=== PATIENT | male | born 1945 | race Caucasian/White ===

== ENCOUNTER 2023-06-30 13:07 | Outpatient (RCR) | payer OTHER, SELFPAY | END 2023-06-30 23:59 | disposition home or self-care (01) | LOC: RPT 13:07 | PROVIDERS: ATTENDING PHYSICIAN Family Medicine | DX: M79.601 Pain in right arm (principal); R26.2 Difficulty in walking, not elsewhere classified; Z73.6 Limitation of activities due to disability; R26.89 Other abnormalities of gait and mobility; M62.81 Muscle weakness (generalized); R29.6 Repeated falls | CPT/HCPCS: 97162; 97530 ==

== ENCOUNTER 2023-08-02 11:01 | Outpatient (RCR) | payer OTHER, SELFPAY | END 2023-08-02 23:59 | disposition home or self-care (01) | LOC: RPT 11:01 | PROVIDERS: ATTENDING PHYSICIAN Family Medicine | DX: M79.601 Pain in right arm (principal); R26.2 Difficulty in walking, not elsewhere classified; R26.89 Other abnormalities of gait and mobility; Z73.6 Limitation of activities due to disability | CPT/HCPCS: 97010; 97110; 97112; 97140; 97164 ==

== ENCOUNTER 2023-08-09 11:08 | Outpatient (RCR) | payer OTHER, SELFPAY | END 2023-08-09 23:59 | disposition home or self-care (01) | LOC: RPT 11:08 | PROVIDERS: ATTENDING PHYSICIAN Family Medicine | DX: M79.601 Pain in right arm (principal); R26.2 Difficulty in walking, not elsewhere classified; Z73.6 Limitation of activities due to disability; R26.89 Other abnormalities of gait and mobility; M62.81 Muscle weakness (generalized); M54.50 Low back pain, unspecified; M54.2 Cervicalgia; R29.6 Repeated falls | CPT/HCPCS: 97010; 97110; 97112 ==

== ENCOUNTER 2023-08-23 22:07 | Emergency (ER) | payer OTHER, SELFPAY ==
[2023-08-23 22:08] VITALS: BP 174/79; BMI 29.6
[2023-08-23 22:26] VITALS: BP 192/69
[2023-08-23 23:00] VITALS: BP 175/154
[2023-08-23 23:02] VITALS: BP 189/72
--- NOTE | 2023-08-23 23:53 | ED.GENMED ---
History of Present Illness
General
Chief Complaint: Fall
Source: patient, spouse and previous hospital records (PVI A-fib ablation March 2023)
Exam Limitations: none
Time Seen by Provider: 08/23/23 22:54
Nursing documentation reviewed up to this point in time: agreed with
Travel History
Have you had any contact with someone who has COVID-19?: No
Do you have any symptoms of coronavirus? Fever > 100 degrees, chills, cough, shortness of breath, sore throat, loss of taste or smell, muscle aches, or headache?: No
History of Present Illness
History of Present Illness:
This is a 77-year-old gentleman who has history of paroxysmal atrial fibrillation status post PVI ablation March 2023, maintained on Eliquis as well as low-dose aspirin. He suffered a mechanical fall tonight, losing his balance and falling
backwards while standing on the sidewalk admits to striking the back of his head on the sidewalk. He did not lose consciousness, was able to get himself up and off of the sidewalk and has presented via private automobile with his for further
evaluation as recommended by his straightedge man due to concern for head injury and anticoagulation.
He denies headache, denies neck or back pain, denies nausea nor vomiting, denies dizziness nor lightheadedness. He denies weakness nor numbness, no chest pain or coughing or shortness of breath. No difficulty with ambulation.
He denies frequent falls but does admit that he sometimes loses his balance and is contemplating using a cane for added support.
Prior to tonight his last fall was January 2023�evaluated in the ED at that time after suffering a mechanical fall while taking out the garbage, sustaining a laceration to his left hand.
Vital signs reviewed. Initial systolic blood pressure moderately elevated 176. Patient states he oftentimes has sporadic elevations of blood pressure generally in the evening hours. His usual baseline systolic blood pressure runs 120s to 140s.
Chronically maintained on Eliquis 5 mg twice daily as well as low-dose aspirin. Recent discussion with his straightedge man regarding frequent bruising along with history of chronic kidney disease with creatinine running 2.2-2.5, he was recommended to
lower his dose of Eliquis to 2.5 mg twice daily which he plans to initiate tomorrow.
Past History
Past History
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
ED Past Surgical History: Cardiac (stent), Orthopedic (Rotator cuff repair) and Other (Hernia repair, Mohs procedure)
Social History
Tobacco: Non-smoker
Alcohol: None
Personal:
Living: with family
Employment: Retired
Family History
Family History: Other (Noncontributory)
Phy Exam
Physical Exam
Physical Exam:
TRAUMA EXAM:
VITAL SIGNS: Vital signs reviewed, cooperative. 77-year-old gentleman appears his stated age, bright and alert, easily communicative and in no acute distress. is accompanying.
DISTRESS: No active disease
EYES: Pupils reactive, no orbital trauma
NOSE: No deformity or epistaxis
FACE AND SCALP: There is a 1 cm soft tissue contusion right posterior parietal scalp that is minimally tender to palpation. Just anterior to this is a 1.5 cm very superficial abrasion with mild scale along the posterior edge. This abrasion appears
somewhat chronic in nature and believes related to dermatology freezing procedure performed more recently. External canals no blood
NECK: Supple nontender, full range of motion without difficulty nor pain.
BACK: Back nontender, pelvis stable to compression. There is a superficial abrasion right inferior scapular region with mild local soft tissue swelling. No focal tenderness. Full shoulder range of motion without difficulty nor pain. There is no
palpable thoracic vertebral nor rib tenderness nor palpable crepitus.
RESPIRATORY: No distress, breath sounds normal, no tender chest wall
CARDIAC: No murmur, pulses equal and strong. Regular rate and rhythm without ectopy.
ABDOMEN: Soft nontender bowel sounds normal
SKIN: Warm and dry, normal color. Good turgor.
EXTREMITIES: There is a superficial abrasion with minimal ecchymosis right posterior elbow. No soft tissue swelling, no palpable tenderness. Full elbow range of motion without difficulty nor pain. +2 pitting edema bilateral lower extremities.
Peripheral pulses are full and equal. Full range of motion of extremities without difficulty nor pain.
NEUROLOGICAL: Alert, oriented, no motor deficits. Gait is steady.
PSYCH: Mood affect normal
Course
Orders/Labs/Results
Orders:
Orders
08/23/23 23:03
CT Head W/o Iv Contrast Urgent
Comment:
Reason For Exam: post head trauma from fall, on eliquis
Vital Signs
Initial and Last Documented VS:
Initial Vital Signs
Temp Pulse Resp BP Pulse Ox
98.3 F 77 16 174/79 99
08/23/23 22:08 08/23/23 22:08 08/23/23 22:08 08/23/23 22:08 08/23/23 22:08
Last Documented Vital Signs
Temp Pulse Resp BP Pulse Ox
98.3 F 77 16 174/79 99
08/23/23 22:08 08/23/23 22:08 08/23/23 22:08 08/23/23 22:08 08/23/23 22:08
MDM/Problems Addressed
Differential Diagnosis Includes:
Patient has suffered mechanical fall, small contusion right parietal scalp.
This patient chronically maintained on Eliquis and low-dose aspirin, he is at increased risk for intracranial bleeding thus will check CT of the head.
Overall exam is reassuring. No focal neurodeficits, he remained bright and alert without headache.
He is also noted to have a minor contusion to right posterior elbow as well as contusion right scapular back region but no local tenderness, lungs are clear to auscultation without difficulty nor pain.
Will check CT of the head but at this point no indication for chest x-ray/rib series nor elbow x-ray.
Currently denies pain.
He is noted to have moderate systolic hypertension and is due for his evening blood pressure medicines. Similar sporadic BP elevations in the past, will continue to observe if remains elevated will give his evening dose of felodipine.
Chronic conditions affecting care: HTN, Arrhythmia and Kidney disease
*Radiology
Radiology exam reviewed: radiology read reviewed (CT of the head is unremarkable)
*Pulse Oximetry
Patient hypoxic: no
*Critical Care Note
Total Time (30-74mins, 75-104mins- exclusive of procedures): Not Applicable
ED Attending Note
-
Portions of this chart may have been created with voice recognition software.� Occasional wrong word or��sound alike� substitutions may have occurred due to the inherent limitations of voice recognition software.
Discharge Plan
Departure
Patient Disposition: Home (Routine Discharge)
Date of Disposition: 08/23/23
Time of Disposition: 23:53
Patient with high blood pressure during this ER visit?: No
Condition: Good
Discharge Problem:
Minor closed head injury, right posterior elbow contusion, Contusion of right scapular region
Instructions: Head Injury in Adults (DC), Contusion (DC), Preventing falls in adults
Prescriptions:
No Action
Eliquis 5 mg tablet
5 mg PO BID Qty: 30 0RF
levothyroxine 175 mcg Tablet
175 mcg PO DAILY
carvedilol 12.5 mg Tablet
12.5 mg PO BID
felodipine 5 mg Tablet Extended Release 24 Hr
5 mg PO DAILY
sertraline 100 mg Tablet
100 mg PO DAILY
folic acid 400 mcg Tablet
0.4 mg PO DAILY
aspirin 81 mg Tablet
81 mg PO DAILY
ezetimibe 10 mg Tablet
10 mg PO DAILY
rosuvastatin 40 mg Tablet
40 mg PO DAILY
bupropion HCl 300 mg Tablet Extended Release 24 Hr
300 mg PO DAILY
alfuzosin 10 mg Tablet Extended Release 24 Hr
5 mg PO BID
trospium 20 mg Tablet
20 mg PO BID
fenofibrate 160 mg Tablet
160 mg PO HS
insulin glargine [Basaglar KwikPen U-100 Insulin] 100 unit/mL (3 mL) Insulin Pen
11 unit SC HS
Edarbi 40 mg Tablet
40 mg PO DAILY
Jardiance 25 mg Tablet
25 mg PO DAILY
pantoprazole [Protonix] 40 mg tablet,delayed release (DR/EC)
40 mg PO DAILY Qty: 14 0RF
Rx Instructions:
Take daily for 2 weeks post procedure, then stop
Referrals:
Jonathon Whiting DO [Family Provider] - Call in 1-3 days for appt
Interventions
Interventions:
*Risk Screen - Suicide Last Done: 08/23/23 22:08
*Neglect/Abuse Screening Last Done: 08/23/23 22:08
*ED COVID-19 Vaccine History Last Done: 08/23/23 22:08
== END 2023-08-24 00:25 | disposition home or self-care (01) ==
LOC: EMR 22:07
PROVIDERS: EMERGENCY PHYSICIAN Emergency Medicine; FAMILY PHYSICIAN Family Medicine
DX: S09.90XA Unspecified injury of head, initial encounter (principal); S40.011A Contusion of right shoulder, initial encounter; W01.0XXA Fall on same level from slipping, tripping and stumbling without subsequent striking against object, initial encounter; Y92.480 Sidewalk as the place of occurrence of the external cause; N40.0 Benign prostatic hyperplasia without lower urinary tract symptoms; I48.0 Paroxysmal atrial fibrillation; I25.10 Atherosclerotic heart disease of native coronary artery without angina pectoris; I12.9 Hypertensive chronic kidney disease with stage 1 through stage 4 chronic kidney disease, or unspecified chronic kidney disease; N18.32 Chronic kidney disease, stage 3b; E78.00 Pure hypercholesterolemia, unspecified; E03.9 Hypothyroidism, unspecified; Z79.01 Long term (current) use of anticoagulants; Z85.828 Personal history of other malignant neoplasm of skin; Z95.5 Presence of coronary angioplasty implant and graft
CPT/HCPCS: 99284; 70450

== ENCOUNTER 2023-09-13 13:11 | Outpatient (RCR) | payer OTHER, SELFPAY | END 2023-09-29 23:59 | disposition home or self-care (01) | LOC: RPT 13:11 | PROVIDERS: ATTENDING PHYSICIAN Family Medicine | DX: M79.601 Pain in right arm (principal); R26.2 Difficulty in walking, not elsewhere classified; Z73.6 Limitation of activities due to disability; R26.89 Other abnormalities of gait and mobility; M62.81 Muscle weakness (generalized); Z91.81 History of falling | CPT/HCPCS: 97110; 97112 ==

== ENCOUNTER 2023-10-20 14:44 | Outpatient (RCR) | payer OTHER, SELFPAY | END 2023-10-20 23:59 | disposition home or self-care (01) | LOC: RPT 14:44 | PROVIDERS: ATTENDING PHYSICIAN Family Medicine | DX: M79.601 Pain in right arm (principal); R26.89 Other abnormalities of gait and mobility; Z73.6 Limitation of activities due to disability | CPT/HCPCS: 97110; 97112; 97140 ==

== ENCOUNTER 2023-12-01 13:08 | Outpatient (RCR) | payer OTHER, SELFPAY | END 2023-12-01 23:59 | disposition home or self-care (01) | LOC: RPT 13:08 | PROVIDERS: ATTENDING PHYSICIAN Family Medicine | DX: M79.601 Pain in right arm (principal); R26.2 Difficulty in walking, not elsewhere classified; Z73.6 Limitation of activities due to disability; R26.89 Other abnormalities of gait and mobility | CPT/HCPCS: 97110; 97112; 97530 ==

== ENCOUNTER 2023-12-29 13:20 | Outpatient (RCR) | payer OTHER, SELFPAY | END 2023-12-29 23:59 | disposition home or self-care (01) | LOC: RPT 13:20 | PROVIDERS: ATTENDING PHYSICIAN Family Medicine | DX: M79.601 Pain in right arm (principal); R26.2 Difficulty in walking, not elsewhere classified; R26.89 Other abnormalities of gait and mobility | CPT/HCPCS: 97110; 97112 ==

== ENCOUNTER 2024-01-24 10:01 | Outpatient (RCR) | payer OTHER, SELFPAY | END 2024-01-24 23:59 | disposition home or self-care (01) | LOC: RPT 10:01 | PROVIDERS: ATTENDING PHYSICIAN Family Medicine | DX: M25.562 Pain in left knee (principal); R26.2 Difficulty in walking, not elsewhere classified; R26.89 Other abnormalities of gait and mobility; Z73.6 Limitation of activities due to disability | CPT/HCPCS: 97110; 97164; 97530 ==

== ENCOUNTER → 2024-03-11 14:00 | Outpatient (REF) | payer OTHER, SELFPAY | LOC: RCS 14:00 | PROVIDERS: ATTENDING PHYSICIAN Nurse Practitioner; FAMILY PHYSICIAN Family Medicine | DX: R60.0 Localized edema (principal) | CPT/HCPCS: 93306 ==

== ENCOUNTER → 2024-05-24 13:27 | Outpatient (REF) | payer OTHER, SELFPAY | LOC: RAD 13:27 | PROVIDERS: ATTENDING PHYSICIAN Internal Medicine Cardiovascular Disease; FAMILY PHYSICIAN Family Medicine | DX: N18.32 Chronic kidney disease, stage 3b (principal) | CPT/HCPCS: 76770 ==

== ENCOUNTER → 2024-08-08 12:04 | Outpatient (REF) | payer OTHER, SELFPAY | LOC: REG 12:04 | PROVIDERS: ATTENDING PHYSICIAN Family Medicine | DX: M54.32 Sciatica, left side (principal); M25.551 Pain in right hip | CPT/HCPCS: 73523 ==

== ENCOUNTER 2025-01-27 13:35 | Emergency (ER) | payer OTHER, SELFPAY ==
[2025-01-27 13:39] VITALS: BP 157/70
--- NOTE | 2025-01-27 17:48 | ED.GENMED ---
History of Present Illness
General
Chief Complaint: Fall
Source: patient and spouse
Time Seen by Provider: 01/27/25 17:37
History of Present Illness
History of Present Illness:
Note:
CHIEF COMPLAINT(S)
Patient presents with chest pain after a fall.
HISTORY OF PRESENT ILLNESS
The patient is a 79-year-old male who presents with complaints of chest pain after experiencing a fall on Monday. The patient reports that he fell forward, mainly landing on his left side, specifically hitting the left elbow and sustaining the
most pain in the left upper chest area. He denied hitting his head during the fall and reports no headache, neck pain, back pain, or abdominal pain. The patient describes the chest pain as sensitive, particularly around the left upper chest just
above the areola. Despite concerns about a potential rib fracture, he decided to come in to ease his wifes mind. The patient has been taking blood thinners, specifically apixaban (Eliquis), which he continues to use.
PAST MEDICAL AND SURIGICAL HISTORY
- On blood thinners (apixaban/Eliquis).
REVIEW OF SYSTEMS
- Musculoskeletal: Reports chest pain localized to the left upper chest area, worsened upon palpation.
- Neurological: Denies headache.
- Gastrointestinal: Denies abdominal pain.
- Musculoskeletal: Denies neck pain, back pain, or hip fracture symptoms.
PHYSICAL EXAM
General: Alert, no acute distress.
Skin: Warm, dry.
Head: Normocephalic, atraumatic.
Neck: Supple, trachea midline, no midline cervical spine tenderness.
Eye Ears, nose, mouth, and throat: Oral mucosa moist.
Cardiovascular: Normal peripheral perfusion, no edema.
Respiratory: Respirations are non-labored, no respiratory distress observed.
Gastrointestinal: Abdomen nondistended.
Back: Normal range of motion, normal alignment, no midline thoracic or lumbar spine tenderness.
Musculoskeletal: Mild tenderness to the left anterior chest wall, above the left areola. Normal flexion and extension of the left knee and left hip, normal internal rotation of the left hip. No tenderness on palpation of the back.
Neurological: Alert and oriented to person, place, time, and situation, no focal neurological deficit observed.
Psychiatric: Cooperative, appropriate mood and affect.
PROBLEM LIST
- Acute: Contusion to the left anterior chest wall, tenderness after fall.
PLAN
- Encourage the use of Tylenol for pain management as needed.
- Ice application to the affected area to reduce inflammation.
- Cautious use of medications due to blood thinner (apixaban).
DIFFERENTIAL DIAGNOSIS
The Differential Diagnosis includes, in no particular order and is not limited to:
1. Rib fracture
2. Costochondritis
3. Muscular strain
4. Contusion
5. Thoracic spine injury
6. Pleural injury
7. Soft tissue injury
8. Pneumothorax
9. Left-sided heart failure (less likely)
10. Acute chest syndrome (in context of trauma)
The patient will have x-rays reviewed for further evaluation of any possible fractures or other underlying issues as a result of the fall.
Disposition:
SUMMARY OF ENCOUNTER
The patient, a 79-year-old male, presented following a fall two days prior. He reported chest pain focused on the left upper chest, particularly after landing on his left side. No head injury or midline spinal tenderness was observed. Imaging
studies, including an X-ray, were performed and evaluated, both found to be negative for acute injury. The patient is on blood thinners, specifically apixaban. Despite his fall, he was alert, oriented, and without signs of acute distress during
evaluation.
DISPOSITION
The patient is cleared for discharge with outpatient management.
PLAN
- Advise using acetaminophen (Tylenol) for pain management as needed.
- Recommend applying ice to the affected chest area to reduce discomfort.
- Continue current medications, including apixaban, with caution regarding bleeding risks.
PATIENT EDUCATION AND COUNSELING
- Discussed the importance of monitored activities and fall prevention, considering the use of blood thinners.
- Emphasized the need to report any new or worsening symptoms, such as increased chest pain or difficulty breathing.
FOLLOW-UP INSTRUCTIONS
- The patient is advised to follow up with his primary care provider to monitor his condition and ensure proper healing.
MEDICATION RECONCILIATION
- Acetaminophen (Tylenol) recommended for pain control as needed.
- Continue current medication, apixaban (Eliquis).
MEDICAL DECISION MAKING
- Complexity of Data Reviewed: Chronic conditions affecting care include anticoagulation therapy with apixaban. Differential diagnosis considerations included rib fracture, costochondritis, muscular strain, contusion, and thoracic spine injury.
- Data:
- My independent interpretation of the chest X-ray shows no signs of fracture or other acute injuries.
- Risk:
- Consideration of Admission/Observation: Escalation of care including admission/observation was considered given the complexity and risk of the patients presenting complaint, exam findings, and his underlying comorbidities. However, ultimately, I
feel the patient is safe for outpatient management with close follow-up. Reasoning: Work-up reassuring, does not reveal any acute life/organ-threatening processes, patients symptoms well controlled upon re-evaluation, reexamination is reassuring,
vitals are stable, patient agreeable with discharge, reliable for follow-up.
DIAGNOSIS
- Contusion of the chest wall (ICD-10: S20.219A)
- History of fall without injury (ICD-10: Z91.81)
Past History
Past History
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
ED Past Surgical History: Cardiac (stent), Orthopedic (Rotator cuff repair) and Other (Hernia repair, Mohs procedure)
Social History
Tobacco: Non-smoker
Alcohol: None
Personal:
Living: with family
Employment: Retired
Family History
Family History: Other (Noncontributory)
Phy Exam
Physical Exam
Physical Exam:
.
Course
Orders/Labs/Results
Orders:
Orders
01/27/25 13:42
Femur, Left 2 View [CR Femur - Left Min 2 Vw] Urgent
Comment:
Reason For Exam: tender to touch, fall
01/27/25 13:43
CR Chest - 2 Views Urgent
Comment:
Reason For Exam: fall, L upper rib pain
Vital Signs
Initial and Last Documented VS:
Initial Vital Signs
Temp Pulse Resp BP Pulse Ox
97.6 F 73 16 157/70 96
01/27/25 13:39 01/27/25 13:39 01/27/25 13:39 01/27/25 13:39 01/27/25 13:39
Last Documented Vital Signs
Temp Pulse Resp BP Pulse Ox
97.6 F 73 16 157/70 96
01/27/25 13:39 01/27/25 13:39 01/27/25 13:39 01/27/25 13:39 01/27/25 13:39
*Pulse Oximetry
SaO2: 96
Oxygen Mode of Delivery: Room air
Patient hypoxic: no
*Critical Care Note
Total Time (30-74mins, 75-104mins- exclusive of procedures): Not Applicable
ED Attending Note
-
Portions of this chart may have been created with voice recognition software.� Occasional wrong word or��sound alike� substitutions may have occurred due to the inherent limitations of voice recognition software.
Discharge Plan
Departure
Patient Disposition: Home (Routine Discharge)
Date of Disposition: 01/27/25
Time of Disposition: 17:49
Patient with high blood pressure during this ER visit?: Yes
Discharge Problem:
Chest wall contusion, Contusion of left thigh
Instructions: Contusion (DC), BLOOD PRESSURE
Prescriptions:
No Action
Eliquis 5 mg tablet
5 mg PO BID Qty: 30 0RF
levothyroxine 175 mcg Tablet
175 mcg PO DAILY
carvedilol 12.5 mg Tablet
12.5 mg PO BID
felodipine 5 mg Tablet Extended Release 24 Hr
5 mg PO DAILY
sertraline 100 mg Tablet
100 mg PO DAILY
folic acid 400 mcg Tablet
0.4 mg PO DAILY
aspirin 81 mg Tablet
81 mg PO DAILY
ezetimibe 10 mg Tablet
10 mg PO DAILY
rosuvastatin 40 mg Tablet
40 mg PO DAILY
bupropion HCl 300 mg Tablet Extended Release 24 Hr
300 mg PO DAILY
alfuzosin 10 mg Tablet Extended Release 24 Hr
5 mg PO BID
trospium 20 mg Tablet
20 mg PO BID
fenofibrate 160 mg Tablet
160 mg PO HS
insulin glargine [Basaglar KwikPen U-100 Insulin] 100 unit/mL (3 mL) Insulin Pen
11 unit SC HS
Edarbi 40 mg Tablet
40 mg PO DAILY
Jardiance 25 mg Tablet
25 mg PO DAILY
pantoprazole [Protonix] 40 mg tablet,delayed release (DR/EC)
40 mg PO DAILY Qty: 14 0RF
Rx Instructions:
Take daily for 2 weeks post procedure, then stop
Activity Restrictions/Additional Instructions:
Please ice your injuries. Please rest and see your doctor in the next 1 week if any symptoms persist. Return immediately for vomiting, headache, vision changes, motor weakness, abdominal pain, worsening pain or any other concerns.
Discharge Date and Time
Print Language: EGYPTIAN
== END 2025-01-27 18:11 | disposition home or self-care (01) ==
LOC: EMR 13:35
PROVIDERS: EMERGENCY PHYSICIAN Emergency Medicine; FAMILY PHYSICIAN Family Medicine
DX: S20.212A Contusion of left front wall of thorax, initial encounter (principal); S70.12XA Contusion of left thigh, initial encounter; W19.XXXA Unspecified fall, initial encounter; I12.9 Hypertensive chronic kidney disease with stage 1 through stage 4 chronic kidney disease, or unspecified chronic kidney disease; N18.32 Chronic kidney disease, stage 3b; E03.9 Hypothyroidism, unspecified; E78.00 Pure hypercholesterolemia, unspecified; I25.10 Atherosclerotic heart disease of native coronary artery without angina pectoris; I48.91 Unspecified atrial fibrillation; Z79.01 Long term (current) use of anticoagulants; Z95.5 Presence of coronary angioplasty implant and graft; Z85.828 Personal history of other malignant neoplasm of skin
CPT/HCPCS: 99284; 71046; 73552

== ENCOUNTER → 2025-01-30 14:11 | Outpatient (REF) | payer OTHER, SELFPAY | LOC: RAD 14:11 | PROVIDERS: ATTENDING PHYSICIAN Physician Assistant Medical; FAMILY PHYSICIAN Family Medicine | DX: M79.89 Other specified soft tissue disorders (principal) | CPT/HCPCS: 93971 ==

== ENCOUNTER 2025-02-24 07:26 | Outpatient (RCR) | payer OTHER, SELFPAY | END 2025-02-24 23:59 | disposition home or self-care (01) | LOC: RPT 07:26 | PROVIDERS: ATTENDING PHYSICIAN Family Medicine | DX: M79.605 Pain in left leg (principal); M54.59 Other low back pain; R26.2 Difficulty in walking, not elsewhere classified; Z73.6 Limitation of activities due to disability; M62.81 Muscle weakness (generalized); G89.29 Other chronic pain; R26.89 Other abnormalities of gait and mobility | CPT/HCPCS: 97162; 97530 ==

== ENCOUNTER 2025-02-25 14:48 | Emergency (ER) | payer OTHER, SELFPAY ==
[2025-02-25] VITALS (11 sets, daily range): BP systolic 189–250; BP diastolic 73–97
[2025-02-25 15:22] LABS: Hematocrit 31.4 % (39.0-52.0); Hemoglobin 10.0 g/dL (13.0-18.0); Mean Corp Hgb Conc. 31.8 g/dL (33.0-37.0); Mean Corpuscular Volume 89.5 fL (80.0-94.0); Nucleated Red Blood Cells % 0 % (-); Platelet Count 233 10^3/uL (130-400); Red Cell Dist. Width 14.9 % (11.5-14.5)
[2025-02-25 15:40] LABS: ALT (SGPT) 20 U/L (0-50); AST (SGOT) 25 U/L (17-59); Albumin 3.6 g/dl (3.5-5.0); Alkaline Phosphatase 43 U/L (38-126); Blood Urea Nitrogen 45 mg/dl (9-20); Calcium 8.7 mg/dl (8.4-10.2); Carbon Dioxide 27 mmol/L (22-30); Chloride 107 mmol/L (98-107); Glucose 179 mg/dl (70-99); Potassium 4.2 mmol/L (3.5-5.1); Sodium 140 mmol/L (135-145); Total Protein 6.3 g/dl (6.3-8.2); eGFR 31.63
[2025-02-25 15:53] LABS: Troponin I < 0.012 ng/ml
--- NOTE | 2025-02-25 18:00 | ED.GENMED ---
History of Present Illness
General
Chief Complaint: Blood Pressure Problem
Time Seen by Provider: 02/25/25 18:00
History of Present Illness
History of Present Illness:
FOCUSED PAST MEDICAL HISTORY
- High blood pressure, diabetes, hypothyroidism, squamous cell carcinoma, anxiety/depression
REVIEW OF OLD RECORDS
- I reviewed records, going back to 2022, the patient's systolics ranged from 144-231.
Note:
CHIEF COMPLAINT(S)
Elevated blood pressure.
HISTORY OF PRESENT ILLNESS
The patient is a 79-year-old male with a known history of hypertension who presented to the emergency department due to concerns of elevated blood pressure readings. He reports not experiencing any symptoms related to high blood pressure at this
time. The patient was instructed by his software development intern to monitor his blood pressure regularly. However, he admits to noncompliance with his diuretic, furosemide, due to the inconvenience of increased urination. He is currently taking carvedilol 25 mg
twice daily and azilsartan (Adarbi) 80 mg daily for blood pressure management. The patients blood pressures have historically been elevated, with readings consistently high over the past few years, sometimes reaching as high as 231 mmHg.
He was previously prescribed amlodipine, but it was discontinued due to peripheral edema. His kidney function, measured by creatinine levels, has been improving with the most recent level at 2.1 mg/dL. He has been taking furosemide every other day
on advice from his healthcare provider to avoid dehydration. He last omitted a dose on Monday, which he was scheduled to take. The patient is scheduled to see his software development intern tomorrow and plans to resume his regular dose of Lasix.
PAST MEDICAL AND SURGICAL HISTORY
- Hypertension
- Congestive Heart Failure
- Chronic Kidney Disease
CHRONIC MEDICAL CONDITIONS SIGNIFICANTLY AFFECTING CARE
- Hypertension
- Chronic Kidney Disease
- Congestive Heart Failure
MEDICATIONS
- Carvedilol 25 mg twice daily
- Azilsartan (Adarbi) 80 mg daily
- Furosemide, last taken intermittently every other day as instructed
- No longer takes felodipine
REVIEW OF SYSTEMS
- Cardiovascular: Elevated blood pressure, previously prescribed medication caused peripheral edema.
- Respiratory: No reported dyspnea.
- Neurological: Denies headaches.
- General: Denies symptoms associated with high blood pressure, such as headaches or chest pain.
PHYSICAL EXAM
General: Alert, no acute distress. Hypertensive blood pressure with systolics in the 180s, heart rate in the 60s
Skin: Warm, dry.
Head: Normocephalic, atraumatic.
Neck: Supple, trachea midline.
Eyes, Ears, Nose, Mouth, and Throat: Oral mucosa moist.
Cardiovascular: Normal peripheral perfusion, trace bilateral lower extremity edema, compression stockings on
Respiratory: Respirations are non-labored.
Gastrointestinal: Abdomen nondistended
Back: Normal range of motion, Normal alignment.
Musculoskeletal: Normal range of motion, normal strength.
Neurological: Alert and oriented to person, place, time, and situation, No focal neurological deficit observed.
Psychiatric: Cooperative, appropriate mood & affect.
PLAN
- Resume furosemide upon returning home due to its beneficial effects on maintaining lower blood pressure.
- Follow up with a software development intern as scheduled tomorrow.
- Emergency Department will administer furosemide if the patient opts to receive it before discharge.
DIFFERENTIAL DIAGNOSIS
The Differential Diagnosis includes, in no particular order and is not limited to:
1. Uncontrolled Hypertension
2. Medication Noncompliance
3. Congestive Heart Failure
4. Chronic Kidney Disease
5. Renovascular Hypertension
6. Hyperaldosteronism
7. Hypertensive Urgency
8. Anxiety-Induced Hypertension
9. Medication-Induced Hypertension (e.g., NSAIDs)
10. Hypovolemia/Dehydration due to diuretic use
Disposition:
SUMMARY OF ENCOUNTER
The patient is a 79-year-old male presenting with concerns of elevated blood pressure. He has a history of hypertension and reports non-compliance with his diuretic medication, furosemide (commonly known as Lasix), due to inconvenience. He admits
that when he takes furosemide every other day, his systolic blood pressure readings improve to the 140s. Recently, without taking the medication, his systolic readings escalated to the 190s. He denies any symptoms associated with high blood pressure
at this time. The recommendation was made to resume furosemide for better blood pressure control, and he is scheduled for a cardiology follow-up tomorrow.
PLAN
- Patient advised to resume furosemide (Lasix) for blood pressure management.
- Follow up with cardiology as scheduled tomorrow.
FOLLOW-UP INSTRUCTIONS
- Follow up with cardiology as scheduled for tomorrow.
MEDICATION RECONCILIATION
- Advised to resume furosemide (Lasix) as previously scheduled for improved blood pressure management.
MEDICAL DECISION MAKING
- Number and Complexity of Problems Addressed: Chronic conditions affecting care include hypertension, congestive heart failure, and chronic kidney disease. DDx includes uncontrolled hypertension, medication noncompliance, congestive heart failure,
chronic kidney disease, renovascular hypertension, hyperaldosteronism, hypertensive urgency, anxiety-induced hypertension, medication-induced hypertension, and hypovolemia/dehydration due to diuretic use.
- Data:
Category 1:
- Non-emergency department records reviewed, including recent blood pressure readings.
Category 3:
- Discussion of management plans with the patient to ensure understanding of the importance of medication compliance and continuity of care with cardiology.
- Risk:
Prescription medication was prescribed as management involved addressing medication noncompliance and advising on the resumption of furosemide for optimal blood pressure control.
DIAGNOSIS
- Hypertension (ICD-10: I10)
- Noncompliance with medication regimen (ICD-10: Z91.14)
- Chronic kidney disease (ICD-10: N18.9)
EKG
- Sinus 64, normal axis, nonspecific ST abnormality, PACs
LABS
- White count normal, hemoglobin 10.0, creatinine 2.1 which is near baseline/slightly improved, troponin less than 0.012
Past History
Past History
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
ED Past Surgical History: Cardiac (stent), Orthopedic (Rotator cuff repair) and Other (Hernia repair, Mohs procedure)
Social History
Tobacco: Non-smoker
Alcohol: None
Personal:
Living: with family
Employment: Retired
Family History
Family History: Other (Noncontributory)
Phy Exam
Physical Exam
Physical Exam:
See HPI
Course
Orders/Labs/Results
Orders:
Orders
02/25/25 15:01
Electrocardiogram (*1) Urgent
Reason for Study: Hypertension, Benign
02/25/25 15:02
EKG- Treatment ONCE
02/25/25 15:07
Complete Blood Count/With Diff Urgent
Comprehensive Metabolic Panel Urgent
Troponin I Urgent
Abnormal Lab Results
02/25/25
15:07
RBC 3.51 L 10^6/uL
(4.70-6.10)
Hgb 10.0 L g/dL
(13.0-18.0)
Hct 31.4 L %
(39.0-52.0)
MCHC 31.8 L g/dL
(33.0-37.0)
RDW 14.9 H %
(11.5-14.5)
Absolute Monos (auto) 0.7 H 10^3/uL
(0.1-0.6)
Lymphocytes % 18.5 L %
(20.5-51.1)
Monocytes % 10.4 H %
(1.7-9.3)
BUN 45 H mg/dl
(9-20)
Creatinine 2.1 H mg/dL
(0.7-1.3)
Glucose 179 H mg/dl
(70-99)
02/25/25 15:07
02/25/25 15:07
Vital Signs
Initial and Last Documented VS:
Initial Vital Signs
Temp Pulse Resp BP Pulse Ox
36.8 C 65 18 189/82 97
02/25/25 14:59 02/25/25 14:59 02/25/25 14:59 02/25/25 14:59 02/25/25 14:59
Last Documented Vital Signs
Temp Pulse Resp BP Pulse Ox
36.8 C 65 18 189/82 97
02/25/25 14:59 02/25/25 14:59 02/25/25 14:59 02/25/25 14:59 02/25/25 18:04
*Pulse Oximetry
SaO2: 97
Patient hypoxic: no
*Critical Care Note
Total Time (30-74mins, 75-104mins- exclusive of procedures): Not Applicable
ED Attending Note
-
Portions of this chart may have been created with voice recognition software.� Occasional wrong word or��sound alike� substitutions may have occurred due to the inherent limitations of voice recognition software.
Discharge Plan
Departure
Patient Disposition: Home (Routine Discharge)
Date of Disposition: 02/25/25
Time of Disposition: 18:15
Patient with high blood pressure during this ER visit?: Yes
Discharge Problem:
High blood pressure
Instructions: High Blood Pressure (DC), BLOOD PRESSURE
Prescriptions:
No Action
Eliquis 5 mg tablet
5 mg PO BID Qty: 30 0RF
levothyroxine 175 mcg Tablet
175 mcg PO DAILY
carvedilol 12.5 mg Tablet
12.5 mg PO BID
felodipine 5 mg Tablet Extended Release 24 Hr
5 mg PO DAILY
sertraline 100 mg Tablet
100 mg PO DAILY
folic acid 400 mcg Tablet
0.4 mg PO DAILY
aspirin 81 mg Tablet
81 mg PO DAILY
ezetimibe 10 mg Tablet
10 mg PO DAILY
rosuvastatin 40 mg Tablet
40 mg PO DAILY
bupropion HCl 300 mg Tablet Extended Release 24 Hr
300 mg PO DAILY
alfuzosin 10 mg Tablet Extended Release 24 Hr
5 mg PO BID
trospium 20 mg Tablet
20 mg PO BID
fenofibrate 160 mg Tablet
160 mg PO HS
insulin glargine [Basaglar KwikPen U-100 Insulin] 100 unit/mL (3 mL) Insulin Pen
11 unit SC HS
Edarbi 40 mg Tablet
40 mg PO DAILY
Jardiance 25 mg Tablet
25 mg PO DAILY
pantoprazole [Protonix] 40 mg tablet,delayed release (DR/EC)
40 mg PO DAILY Qty: 14 0RF
Rx Instructions:
Take daily for 2 weeks post procedure, then stop
Referrals:
Jonathon Whiting, [Family Provider, Family Practice]
Activity Restrictions/Additional Instructions:
Take the Lasix when you get home. Follow your software development intern tomorrow. I recommend that you resume the Lasix dosing as previously prescribed by your doctors. Your kidney function is somewhat improved now with a creatinine of 2.1. Return here if
worse or other concerns.
Interventions
Interventions:
*Risk Screen - Suicide Last Done: 02/25/25 15:01
*Neglect/Abuse Screening Last Done: 02/25/25 15:01
Discharge Date and Time
Print Language: GERMAN
[2025-02-25] MEDS: APRESOLINE 25 MG PO (19:07)
[2025-02-25] MEDS: APRESOLINE 10 MG IV (21:14)
[2025-02-25] MEDS: COREG 25 MG PO (21:15)
[2025-02-25] MEDS: LASIX 40 MG IV (21:15)
--- NOTE | 2025-02-25 21:58 | ED.ADDNOTE ---
ED Addendum
ED Addendum
ED Addendum Note:
After initial anticipated discharge, the patient's blood pressure then went up to around 240 systolic however he remained asymptomatic. I did review his old records and he frequently does have very high blood pressure readings. However he tells me
at home when he takes his Lasix his blood pressure is improved. We gave 25 mg of oral hydralazine with no significant change in blood pressure. We then placed an IV as the blood pressure systolic was around 250 again asymptomatic. We gave IV
Lasix and IV hydralazine as well as his evening dose of Coreg. Blood pressure has been trending downward now around 2's 100 systolic. He has an appoint to see his industrial spraypainter tomorrow. I encouraged him to be compliant with his Lasix.
== END 2025-02-25 22:14 | disposition home or self-care (01) ==
LOC: EMR 14:48
PROVIDERS: Emergency Medicine; EMERGENCY PHYSICIAN Emergency Medicine; FAMILY PHYSICIAN Family Medicine
DX: I13.0 Hypertensive heart and chronic kidney disease with heart failure and stage 1 through stage 4 chronic kidney disease, or unspecified chronic kidney disease (principal); E11.22 Type 2 diabetes mellitus with diabetic chronic kidney disease; I50.9 Heart failure, unspecified; N18.32 Chronic kidney disease, stage 3b; E03.9 Hypothyroidism, unspecified; E78.00 Pure hypercholesterolemia, unspecified; I25.10 Atherosclerotic heart disease of native coronary artery without angina pectoris; I48.91 Unspecified atrial fibrillation; Z79.899 Other long term (current) drug therapy; Z95.5 Presence of coronary angioplasty implant and graft
CPT/HCPCS: 96374; 96375; 99284; 80053; 84484; 85025; 93005

== ENCOUNTER → 2025-03-19 14:10 | Outpatient (REF) | payer OTHER, SELFPAY | LOC: RCS 14:10 | PROVIDERS: ATTENDING PHYSICIAN Nurse Practitioner Gerontology; FAMILY PHYSICIAN Family Medicine | DX: I35.1 Nonrheumatic aortic (valve) insufficiency (principal) | CPT/HCPCS: 93306 ==